=== PATIENT | male | born 1985 | race Hispanic/Latino ===

== ENCOUNTER 2024-09-04 15:28 | Emergency (ER) | payer SELFPAY ==
[2024-09-04 15:37] VITALS: BP 146/87; PULSE 65; RESP 16; TEMP 36.5; O2SAT 99
--- NOTE | 2024-09-04 16:33 | ED_ITS ---
HPI - Eye Problem General Chief complaint: Eye Problems Stated complaint: Left Eye Irritation Time Seen by Provider: 09/04/24 16:33 Source: patient, RN notes reviewed and old records reviewed Mode of arrival: ambulatory Limitations: no limitations History of Present Illness HPI Narrative: Patient presents with complaints of redness to left eye. He denies any pain or injury. He reports he noticed the redness last night. 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 Related Data Home Medications ?Medication ?Instructions ?Recorded ?Confirmed ?Last Taken ?Type MEDICINE FOR HYPERTENSION 09/04/24 Unknown History Allergies Allergy/AdvReac Type Severity Reaction Status Date / Time No Known Allergies Allergy Verified 09/04/24 15:57 Review of Systems Review of Systems: All systems reviewed & are unremarkable except as noted in HPI and below Constitutional: Constitutional: Reports no additional constitutional complaints Eyes: Eyes: Reports as per HPI and Reports no additional eye complaints ENT: Reports system reviewed and no additional complaints, except as documented Cardiovascular: Cardiovascular: Reports no additional cardiovascular complaints Respiratory: Respiratory: Reports no additional respiratory complaints Gastrointestinal: Gastrointestinal: Reports no additional gastrointestinal complaints PMFSH Comments At the time of my signature, I reviewed and agree with the nursing past medical, surgical, social, and family history. There is no relevant family history pertinent to the patient complaint. Exam Const: General: cooperative, no acute distress, alert and awake Orientation/consciousness: oriented to person, oriented to place and oriented to time HENMT: Head: normal to inspection Eyes: Sclera: scleral abnormality left hemorrhage (Left eye near outer canthus) Resp: Effort & Inspection: normal respiratory effort and able to speak in complete sentences Auscultation: clear to auscultation bilaterally, no crackles, no rales, no rhonchi and no wheezes Cardio: Palpation: normal PMI Rate: regular rate Rhythm: regular rhythm Heart sounds: S1 normal heart sound present and S2 normal heart sound present Neuro: General: oriented to person, oriented to place and oriented to time Cranial nerves: Yes CN's II-XII intact bilaterally Psych: Appearance: grossly normal Thought process: Normal thought process present Insight: Good insight present (Psych) Judgement: Good judgement present (Psych) Course Course Level of Care: Express Care Visit Vital Signs Vital signs: Vital Signs Temperature 97.7 F 09/04/24 15:37 Pulse Rate 65 09/04/24 15:37 Respiratory Rate 16 09/04/24 15:37 Blood Pressure 146/87 H 09/04/24 15:37 Pulse Oximetry 99 09/04/24 15:37 Oxygen Delivery Room Air 09/04/24 15:37 Temperature 97.7 F 09/04/24 15:37 Pulse Rate 65 09/04/24 15:37 Respiratory Rate 16 09/04/24 15:37 Blood Pressure 146/87 H 09/04/24 15:37 Pulse Oximetry 99 09/04/24 15:37 Oxygen Delivery Room Air 09/04/24 15:37 Reviewed MDM - Eye Problem MDM Narrative Medical decision making narrative: History and exam consistent with subconjunctival hemorrhage. Patient advised to cease heavy lifting until symptoms resolve. Follow with primary care provider. Emergency department for new or worse symptoms. Discharge instructions reviewed with patient, as well as provided in writing per nursing staff. The instructions also include specific and strict return/GO TO THE ER as well as f/u information. All questions have been answered, and the patient deny any further questions with discharge and discharge plan. Some parts of this dictation were generated by voice recognition software and may contain typographical and/or grammatical inaccuracies. Differential Diagnosis Differential diagnosis: Likely corneal abrasion, conjunctivitis and subconjunctival hemorrhage Medical Records Attestation: I reviewed the patient's medical records. Discharge Plan Discharge Clinical Impression: Subconjunctival hemorrhage Qualifiers: Laterality: left Qualified Code(s): H11.32 - Conjunctival hemorrhage, left eye Patient Disposition: Home, Self-Care Condition: Stable Instructions: Ecchymosis (ED) Additional Instructions: Avoid heavy lifting until the eye heals. 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
== END 2024-09-04 16:50 | disposition home or self-care (01) ==
PROVIDERS: Emergency Provider Nurse Practitioner Family
DX: H11.32 Conjunctival hemorrhage, left eye (principal); I10 Essential (primary) hypertension
CPT/HCPCS: 99212; G0463